=== PATIENT | female | born 1985 | race Caucasian/White ===

== ENCOUNTER 2016-07-08 11:16 | Outpatient (CLI) | payer OTHER ==
[~2016-07-08] VITALS: Ht 152.4 cm; Wt 61.3 kg
[~2016-07-08 11:16] MED LIST: AMO500 PO; CALC600T5 PO; FOLI0.8C PO; PRENAT PO
[2016-07-08 11:27] VITALS: BP 93/57; PULSE 94; RESP 18; Ht 152.4 cm; Wt 61.3 kg
--- NOTE | 2016-07-08 12:07 | RADRPT ---
PROCEDURE: OB ultrasound for biophysical profile CLINICAL INDICATION: tachycardia TECHNIQUE: Multiple sonographic images of the pelvis were obtained. Transabdominal views of the g ravid uterus are available for review. The images were reviewed on a PACS workstation. COMPARISON: None FINDINGS: breathing movement = 2/2 tone = 2/2 motion = 2/2 BRITTANY = 2/2 BRITTANY = 12.7 cm Single live intrauterine with cardiac activity of 148 bpm. position is cephal ic. The placenta is anterior. IMPRESSION: 1. Single live intrauterine gestation. 2. Biophysical profile = 8/8. 3. BRITTANY = 12.7 cm. RPTAT: HH .Laura Madden MD, MD Date Time Electronically viewed and signed by .Laura Madden MD, on 07/08/2016 12:06 .G/
--- NOTE | 2016-07-08 12:33 | TRIAGE ---
OB Triage Datetime Report Generated by CPN: 07/08/2016 12:33 Datetime: 07/08/2016 12:10 Labor Evaluation Frequency: 0 Monitor Mode: External Pattern: Normal: <= 5 Contractions in 10 Minutes Resting Tone [place]: Relaxed Heart Rate FHR Baseline Rate: 140 Monitor Mode: External US Variability: Moderate 6-25 bpm Accelerations: 15X15 Decelerations: None Category: Category I Pain Assessment Pain Presence: None/Denies Datetime: 07/08/2016 11:46 Assessment Type: Admission Assessment Maternal Assessment Level of Consciousness: Fully Conscious DTR's/Clonus: DTRs 2+; No Clonus Headache: Denies Blurred Vision: No Respiratory Effort: Unlabored; Regular Rhythm; Equal Expansion Breath Sounds, Left: Clear and Equal Breath Sounds, Right: Clear and Equal Nausea/Vomiting: Denies RUQ Epigastric Pain: Denies Lower Extremities Edema: None Degree: None Upper Extremities Edema: None Degree: None Facial Edema: None Fall Risk Assessment History of Falling: (0) No Secondary Diagnosis: (0) No Ambulatory Aid: (0) Bedrest/Nurse Assist IV Therapy: (0) No Gait: (0) Normal/Bedrest/Immobile Mental Status: (0) Oriented to Own Ability Fall Score: 0 Fall Risk Score Definition: No Risk: No action required Datetime: 07/08/2016 11:19 Pain Assessment Pain Presence: None/Denies Datetime: 07/08/2016 11:18 Stage of : OB Triage Datetime: 04/06/2016 11:38 Time of Arrival: 07/08/2016 11:03 EGA: 30.6 Arrived By: Ambulatory Arrived From: Office Chief Complaint: SENT FROM DR. SNOW FOR NST AND BPP WITH BRITTANY. BABY HEART TONES AT 180BPM AT OFFICE. Movement: Present Contractions: Denies/Absent Rupture of Membranes: Denies Vaginal Bleeding: None Vaginal Discharge: Denies Recent Sexual Intercouse: Denies Abdominal Trauma: Not Applicable Patient Complaints: None Time Provider Notified: 07/08/2016 12:18 Provider Notified: DR. HENDERSON Initial Plan: TOCO- U/S, BPP WITH BRITTANY Datetime: 04/06/2016 11:30 Fall Score: 0 Fall Risk Score Definition: No Risk: No action required
--- NOTE | 2016-07-08 13:11 | TRIAGE ---
OB Triage Datetime Report Generated by CPN: 07/08/2016 13:10 Datetime: 07/08/2016 12:26 Frequency: 0 Monitor Mode: External Pattern: Normal: <= 5 Contractions in 10 Minutes Resting Tone [place]: Relaxed FHR Baseline Rate: 150 Monitor Mode: External US Variability: Moderate 6-25 bpm Accelerations: 15X15 Decelerations: None Category: Category I Pain Presence: None/Denies
--- NOTE | 2016-07-08 13:14 | CONS ---
Date/Time of Note Date/Time of Note DATE: 07/08/16 TIME: 13:02 Consultation Date/Type/Reason Admit Date/Time July 08, 2069 OB triage consult Initial Consult Date This patient is 30 years old 3 para 2 living 2 with EDC of September 20, 2016 which makes her about 30 weeks and 6 days today On general examination she is a well-developed well-nourished lady, She was sent from the clinic for evaluation of tachycardia to rule out any abnormality of the fetus She is about 31 weeks . Her blood pressure is 93/57 pulse rate 94 respiration 18 temperature 98.9. On examination her ear nose throat appears to be normal neck is normal no neck vein distention no thyromegaly. No lymph node enlargement and evidence her body. Her chest is clear to auscultation heart normal sinus rhythm abdomen is soft fundus measures about 21 cm movement were normal no CVA tenderness . Urinalysis was performed which the report was normal no evidence of infection or blood By "life is "profile was performed the report was 8 out of 8 with amniotic fluid index of 12.7 cm Reason for Consultation With these positive findings normal heart rate and biophysical profile reassurance was given to the patient advised to continue her care in her handling tech's office dictation thank 24 HR Interval Summary Constitutional: no complaints (No complaint) Detailed Summary Eyes: No discharge, No no complaints, No other, No pain, No redness, No visual change ENT: No bleeding, No congestion, No discharge, No dysphagia, No no complaints, No other, No pain, No sore throat Respiratory: No cough, No no complaints, No other, No pain, No pleuritic pain, No shortness of breath, No sputum, No wheezing Cardiovascular: No chest pain, No edema, No lightheadedness, No no complaints, No orthopenea, No other, No palpitations, No paroxysmal nocturnal dyspnea Gastrointestinal: No blood, No constipation, No decreased appetite, No diarrhea , No flatus, No nausea, No no complaints, No other, No pain, No passing stool, No vomiting Musculoskeletal: No back pain, No bone/joint pain, No neck pain, No no complaints, No other, No restricted range of motion, No swelling Skin: No bruising, No erythema, No laceration, No no complaints, No other, No pruritis, No rash, No skin lesions Neurologic: No confusion, No dizziness, No focal-weakness, No headache, No no complaints, No other, No seizure, No syncope Endocrine: No dry skin, No no complaints, No other, No polydypsia, No polyuria , No temp intolerance Lymphatic: No adenopathy, No lymphadema, No no complaints, No other, No tender nodes Psychological: No anxiety, No confusion, No depression, No nl mood/affect, No no complaints, No other, No suicidal Immunologic: No immunodeficiency, No no complaints, No other, No pruritis, No rhinitis, No urticaria Exam/Review of Systems Vital Signs Vitals Vital Signs Date Time Temp Pulse Resp B/P Pulse Ox O2 Delivery O2 Flow Rate FiO2 07/08/16 11:27 98.9 94 18 93/57 Room Air DICK MELENDREZ MD Jul 08, 2016 13:12
--- NOTE | 2016-07-08 17:52 | TRIAGE ---
OB Triage Datetime Report Generated by CPN: 07/08/2016 17:52 Datetime: 07/08/2016 12:33 Time of Arrival: 07/08/2016 11:03 EGA: 30.6 Arrived By: Ambulatory Arrived From: Office Chief Complaint: SENT FROM OFFICE FOR NST AND BPP WITH BRITTANY. BABY HEART TONES AT 180BPM AT OFFICE. Movement: Present Contractions: Denies/Absent Rupture of Membranes: Denies Vaginal Bleeding: None Vaginal Discharge: Denies Recent Sexual Intercouse: Denies Abdominal Trauma: Not Applicable Patient Complaints: None Time Provider Notified: 07/08/2016 12:18 Provider Notified: DR. CARRION Initial Plan: TOCO- U/S, BPP WITH BRITTANY Datetime: 07/08/2016 11:46 Fall Score: 0 Fall Risk Score Definition: No Risk: No action required Datetime: 04/06/2016 11:38 EGA: 17.4
== END 2016-07-08 13:10 | disposition home or self-care (01) ==
LOC: OBT 11:16 → L-D 11:17 → OBT 13:10
PROVIDERS: ATTEND Obstetrics & Gynecology
DX: O76 Abnormality in fetal heart rate and rhythm complicating labor and delivery (principal); Z3A.30 30 weeks gestation of pregnancy
CPT/HCPCS: 76818; Z7500; G0463

== ENCOUNTER 2016-08-01 12:55 | Outpatient (CLI) | payer OTHER ==
[~2016-08-01] VITALS: Ht 152.4 cm; Wt 63.0 kg
[~2016-08-01 12:55] MED LIST changes: -AMO500 PO; -CALC600T5 PO; -FOLI0.8C PO
[2016-08-01 13:07] VITALS: BP 90/54; PULSE 83; RESP 19; Ht 152.4 cm; Wt 63.0 kg
[2016-08-01 13:18] LABS: URINE BLOOD (Dip) POC Negative (NEGATIVE)
[2016-08-01] MEDS ORDERED: LACTATED RINGER'S 1,000 ML IV ONE (13:30)
--- NOTE | 2016-08-01 13:52 | RADRPT ---
PROCEDURE: US OB. CLINICAL INDICATION: Decreased movement TECHNIQUE: Multiple sonographic images of the pelvis were obtained. The images were reviewed on a PACS workstation. COMPARISON: 07/08/2016 FINDINGS: There is a single live intrauterine . cardiac activity is identified at a rate of 18 5 beats per minute. presentation is cephalic. Placenta is anterior grade II with calcification. Biophysical profile score is as follows: Breathing 2 Movements 2 Tone 2 Fluid volume 2 Amniotic fluid index = 9.3 cm Total biophysical profile score = 8/8 IMPRESSION: Biophysical profile score = 8/8 tachycardia RPTAT: HH .Andrade Ibanez MD, MD Date Time Electronically viewed and signed by .Andrade Ibanez MD, on 08/01/2016 13:52 .W/
[2016-08-01 14:06] LABS: ADD UMIC YES; URINE BILIRUBIN (Dip) NEGATIVE (NEGATIVE); URINE BLOOD (Dip) NEGATIVE (NEGATIVE); URINE COLOR LT. YELLOW (YELLOW); URINE GLUCOSE (Dip) NEGATIVE (NEGATIVE); URINE KETONES (Dip) NEGATIVE (NEGATIVE); URINE LEUKOCYTE ESTERASE (Dip) 3+ (NEGATIVE); URINE NITRITE (Dip) NEGATIVE (NEGATIVE); URINE TOTAL PROTEIN (Dip) NEGATIVE (NEGATIVE); URINE UROBILINOGEN (Dip) 0.2 E.U./dL (0.1-1.0)
[2016-08-01 14:18] LABS: URINE RBCS NONE SEEN /HPF (0)
[2016-08-01 14:19] LABS: BACTERIA,URINE MODERATE
--- NOTE | 2016-08-01 15:03 | TRIAGE ---
OB Triage Datetime Report Generated by CPN: 08/01/2016 15:03 Datetime: 08/01/2016 15:00 Stage of : OB Triage Maternal Assessment Level of Consciousness: Fully Conscious DTR's/Clonus: DTRs 1+ Headache: Denies Breath Sounds, Left: Clear and Equal Breath Sounds, Right: Clear and Equal Nausea/Vomiting: Denies RUQ Epigastric Pain: Denies Monitor Mode: External Pattern: Normal: <= 5 Contractions in 10 Minutes Resting Tone [place]: Relaxed Heart Rate FHR Baseline Rate: 135 Monitor Mode: External US Variability: Moderate 6-25 bpm Accelerations: 15X15 Decelerations: None Category: Category I Pain Assessment Pain Scale: 0 Pain Presence: None/Denies Pain Type: N/A Pain Goal: 3 Vaginal Exam Membrane Status: Intact Datetime: 08/01/2016 14:32 Maternal Assessment Level of Consciousness: Fully Conscious DTR's/Clonus: DTRs 1+ Headache: Denies Blurred Vision: No Respiratory Effort: Unlabored Breath Sounds, Left: Clear and Equal Breath Sounds, Right: Clear and Equal Nausea/Vomiting: Denies RUQ Epigastric Pain: Denies Facial Edema: None Labor Evaluation Frequency: OCC Monitor Mode: External Duration (sec)2399: 30-40 Quality: Mild Pattern: Normal: <= 5 Contractions in 10 Minutes Resting Tone [place]: Relaxed Heart Rate FHR Baseline Rate: 135 Monitor Mode: External US Variability: Moderate 6-25 bpm Accelerations: 15X15 Decelerations: None Category: Category I Pain Assessment Pain Scale: 0 Pain Presence: None/Denies Pain Type: N/A Pain Goal: 3 Vaginal Exam Membrane Status: Intact Datetime: 08/01/2016 13:21 Maternal Assessment Level of Consciousness: Fully Conscious DTR's/Clonus: DTRs 1+ Headache: Denies Blurred Vision: No Respiratory Effort: Unlabored Breath Sounds, Left: Clear and Equal Breath Sounds, Right: Clear and Equal Nausea/Vomiting: Denies RUQ Epigastric Pain: Denies Facial Edema: None Labor Evaluation Frequency: NONE Monitor Mode: External Resting Tone [place]: Relaxed Heart Rate FHR Baseline Rate: 150 Monitor Mode: External US Variability: Moderate 6-25 bpm Accelerations: 15X15 Decelerations: None Category: Category I Pain Assessment Pain Scale: 4 Pain Presence: Constant Pain Type: Dull Pain Location: Abdomen Pain Goal: 3 Vaginal Exam Membrane Status: Intact Datetime: 08/01/2016 13:06 Assessment Type: Triage Maternal Assessment Level of Consciousness: Fully Conscious DTR's/Clonus: DTRs 2+; No Clonus Headache: Denies Blurred Vision: No Respiratory Effort: Unlabored; Regular Rhythm; Equal Expansion Breath Sounds, Left: Clear and Equal Breath Sounds, Right: Clear and Equal Nausea/Vomiting: Denies RUQ Epigastric Pain: Denies Lower Extremities Edema: None Degree: None Upper Extremities Edema: None Degree: None Facial Edema: None Fall Risk Assessment History of Falling: (0) No Secondary Diagnosis: (0) No Ambulatory Aid: (0) Bedrest/Nurse Assist IV Therapy: (0) No Gait: (0) Normal/Bedrest/Immobile Mental Status: (0) Oriented to Own Ability Fall Score: 0 Fall Risk Score Definition: No Risk: No action required Datetime: 08/01/2016 12:49 Time of Arrival: 08/01/2016 12:49 EGA: 34.2 Arrived By: Ambulatory Arrived From: Home Chief Complaint: PT CAME IN C/O LOWER CONSTANT ABDOMINAL PAIN SINCE 0200 AND DFM Movement: Present Contractions: Denies/Absent Rupture of Membranes: Denies Vaginal Discharge: Denies Recent Sexual Intercouse: Denies Additional Patient Complaints: NONE Initial Plan: NST AND BPP Datetime: 07/08/2016 12:33 EGA: 30.6 Chief Complaint: SENT FROM DR. OFFICE FOR NST AND BPP WITH BRITTANY. BABY HEART TONES AT 180BPM AT DR. OFFICE PER DR. CARRION. Datetime: 07/08/2016 11:46 Fall Score: 0 Fall Risk Score Definition: No Risk: No action required Datetime: 04/06/2016 11:38 EGA: 17.4 Datetime: 04/06/2016 11:30 Fall Score: 0 Fall Risk Score Definition: No Risk: No action required
--- NOTE | 2016-08-01 15:06 | HP ---
Date/Time of Note Date/Time of Note DATE: 08/01/16 TIME: 14:57 OB - History Hx of Present Free Text/Dictation OB Triage H&P Pt is a 31yo at 34+2 presenting with c/o LAP and decreased FM since midnight. Pt now reports normal FM in triage. Denies LOF or VB, occasionally feels UCs. Does c/o dysuria, frequency and urgency. PROCEDURE: US OB. CLINICAL INDICATION: Decreased movement TECHNIQUE: Multiple sonographic images of the pelvis were obtained. The images were reviewed on a PACS workstation. COMPARISON: 07/08/2016 FINDINGS: There is a single live intrauterine . cardiac activity is identified at a rate of 185 beats per minute. presentation is cephalic. Placenta is anterior grade II with calcification. Biophysical profile score is as follows: Breathing 2 Movements 2 Tone 2 Fluid volume 2 Amniotic fluid index = 9.3 cm Total biophysical profile score = 8/8 IMPRESSION: Biophysical profile score = 8/8 tachycardia Past Family/Social History * Past Medical, Surgical, Family and Obstetric Histories reviewed from chart. OB Admission Exam Vital Signs Vital Signs Vital Signs Date Time Temp Pulse Resp B/P Pulse Ox O2 Delivery O2 Flow Rate FiO2 08/01/16 13:07 98.2 83 19 90/54 99 Room Air Physical Exam Abdomen: WNL Heart Rate: 130's Accelerations: Accelerations Present Decelerations: No Decelerations Varibility: Moderate Contractions on Admission: >10 Minutes Apart (2 UCs/90 min) OB Assessment/Plan Other Assessment: Reassuring FWB UTI Other plan: 1)FWB reassuring w/normal BPP. Initially tachycardia to 170s was noted with accels to 180s on FHT, however with IV hydration per Dr. Buckley, tachycardia resolved. 2)UTI- Will presumptively treat given Udip and sxs with 7d of Macrobid. Urine sent for culture. Dr. Buckley aware of U/S findings as discussed with her by tool room attendant. PTL, PPROM and FKC precautions reviewed with pt. Pt to f/up with Dr. Buckley as outpatient on 08/13/16, sooner in OB triage prn. Questions answered to patient's satisfaction. Pt appropriate for d/c home. KELLY MACIAS MD Aug 01, 2016 15:06
== END 2016-08-01 15:00 | disposition home or self-care (01) ==
LOC: OBT 12:55 → L-D 12:56 → OBT 15:00
PROVIDERS: ATTEND Obstetrics & Gynecology
DX: O36.8130 Decreased fetal movements, third trimester, not applicable or unspecified (principal); O62.9 Abnormality of forces of labor, unspecified; O26.893 Other specified pregnancy related conditions, third trimester; R10.12 Left upper quadrant pain; Z3A.34 34 weeks gestation of pregnancy
CPT/HCPCS: 36415; 76818; 81001; 81003; 87086; J7120; Z7500; G0463

== ENCOUNTER 2016-08-22 19:41 | Outpatient (CLI) | payer OTHER ==
[~2016-08-22] VITALS: Ht 154.9 cm; Wt 63.6 kg
[2016-08-22 19:59] VITALS: Ht 154.9 cm; Wt 63.6 kg
[2016-08-22 20:00] VITALS: BP 100/63; PULSE 90; RESP 18
--- NOTE | 2016-08-22 23:24 | RADRPT ---
PROCEDURE: ULTRASOUND BIOPHYSICAL PROFILE CLINICAL INDICATION: 31-year-old female with contractions for viability. TECHNIQUE: Multiple sonographic images were obtained in order to perform a biophysical profile The images were reviewed on a PACS workstation. COMPARISON: Ultrasound biophysical profile August 01, 2016. FINDINGS: There is a single viable intrauterine gestation. There is a vertex presentation. Cardiac activity i s present at 137 beats per minute. The placenta is anterior. The results of the biophysical profile are as follows: breathing movement = 2/2 Gross body movement = 2/2 tone = 2/2 Qualitative amniotic fluid volume = 2/2 Amniotic fluid index equals 10.0 cm. This yields a biophysical profile score of 8/8. IMPRESSION: Biophysical profile score is 8/8. .Kai Gandhi MD, MD Date Time Electronically viewed and signed by .Kai Gandhi MD, MD on 08/22/2016 23:24 .M/
--- NOTE | 2016-08-23 00:18 | QN ---
Documentation Comment Laborist Dr Buckley's pt 31 y.o. with an IUP at 37w3d c/o contractions. No VB. No leaking. PMHx: none. PSHx: none. POBHx: x 2. The last baby was 7 years ago, that labor was about 8 hours, and she has no recollection if she delivered early, late or on time. NKDA. BP 100/63 T=98.3 BPP 8/8 with an BRITTANY of 10cm. VTX. CX 30%/FT/-3. NST: baseline was 140-150 bpm with accels to 180 bpm. No decels. UC's q 6-9 minutes. A: IUP at 37w3d. False labor. Plan: D/C home. kick counts reviewed with the pt. ASHLEY QUICK MD Aug 23, 2016 00:18
--- NOTE | 2016-08-23 00:57 | TRIAGE ---
OB Triage Datetime Report Generated by CPN: 08/23/2016 00:57 Datetime: 08/23/2016 00:07 Stage of : OB Triage Datetime: 08/23/2016 00:05 Stage of : OB Triage Datetime: 08/22/2016 23:00 Stage of : OB Triage Labor Evaluation Frequency: IRREGULAR Monitor Mode: External Duration (sec)2399: 60-90 Quality: Mild Pattern: Normal: <= 5 Contractions in 10 Minutes Resting Tone [place]: Relaxed Heart Rate FHR Baseline Rate: 125 Monitor Mode: External US Variability: Moderate 6-25 bpm Accelerations: 15X15 Decelerations: None Category: Category I Datetime: 08/22/2016 22:31 Vaginal Exam Dilatation (cms): 1.0 Effacement (%): 30 Station: -3 Datetime: 08/22/2016 20:27 Labor Evaluation Frequency: IRREGULAR Monitor Mode: External Duration (sec)2399: 60-90 Quality: Mild Pattern: Normal: <= 5 Contractions in 10 Minutes Resting Tone [place]: Relaxed Heart Rate FHR Baseline Rate: 145 Monitor Mode: External US Variability: Moderate 6-25 bpm Accelerations: 15X15 Decelerations: None Category: Category I Datetime: 08/22/2016 20:15 Vaginal Exam Dilatation (cms): 1.0 Effacement (%): 30 Station: -3 Membrane Status: Intact Datetime: 08/22/2016 19:55 Stage of : OB Triage Maternal Assessment Level of Consciousness: Fully Conscious Headache: Denies Blurred Vision: No Respiratory Effort: Unlabored Nausea/Vomiting: Denies RUQ Epigastric Pain: Denies Lower Extremities Edema: None Degree: None Upper Extremities Edema: None Degree: None Facial Edema: None Temperature Route: Oral Datetime: 08/22/2016 19:51 Contraction Comments: TOCO APPLIED Comments: US APPLIED Datetime: 08/22/2016 19:45 Time of Arrival: 08/22/2016 19:45 EGA: 37.2 Arrived By: Ambulatory Arrived From: Home Chief Complaint: CONTRACTIONS Movement: Present Contractions: Irregular Time Contractions Began: 08/22/2016 17:00 Contractions: 6-9 Rupture of Membranes: Denies Vaginal Bleeding: None Vaginal Discharge: Denies Recent Sexual Intercouse: Denies Abdominal Trauma: Not Applicable Patient Complaints: Contractions Time Provider Notified: 08/22/2016 20:19 Provider Notified: MURALI Initial Plan: VE; NST Datetime: 08/01/2016 15:00 Vaginal Bleeding: None Datetime: 08/01/2016 13:06 Fall Risk Assessment Fall Score: 0 Fall Risk Score Definition: No Risk: No action required Datetime: 08/01/2016 12:49 EGA: 34.2 Time Provider Notified: 08/01/2016 13:12 Provider Notified: MURALI Datetime: 07/08/2016 12:33 EGA: 30.6 Datetime: 07/08/2016 11:46 Fall Risk Assessment Fall Score: 0 Fall Risk Score Definition: No Risk: No action required Datetime: 04/06/2016 11:38 EGA: 17.4 Datetime: 04/06/2016 11:30 Fall Risk Assessment Fall Score: 0 Fall Risk Score Definition: No Risk: No action required
== END 2016-08-23 00:15 | disposition home or self-care (01) ==
LOC: OBT 19:41 → L-D 19:42 → OBT 08-23 00:15
PROVIDERS: ATTEND Obstetrics & Gynecology
DX: O47.03 False labor before 37 completed weeks of gestation, third trimester (principal); Z3A.31 31 weeks gestation of pregnancy
CPT/HCPCS: 76818

== ENCOUNTER 2016-09-09 20:43 | Outpatient (CLI) | payer OTHER ==
[~2016-09-09] VITALS: Ht 152.4 cm; Wt 59.1 kg
[2016-09-09 20:58] VITALS: Ht 152.4 cm; Wt 59.1 kg
[2016-09-09 20:59] VITALS: BP 103/61; PULSE 97; RESP 18
[2016-09-09] MEDS ORDERED: ACETAMINOPHEN 500 MG TAB PO STA (21:20)
[2016-09-09] MEDS ORDERED: LACTATED RINGER'S 1,000 ML IV ONE (21:30)
[2016-09-09 22:07] LABS: ADD SCAN DIFF NO
[2016-09-09 22:10] LABS: BASOPHILS % 0.3 % (0.0-2.0); EOSINOPHILS # 0.1 10^3/ul (0.0-0.5); EOSINOPHILS % 1.4 % (0.0-7.0); HEMOGLOBIN 12.4 g/dl (12.0-16.0); LYMPHOCYTES # 1.6 10^3/ul (0.8-2.9); LYMPHOCYTES % 20.9 % (15.0-51.0); MEAN CORPUSCULAR HEMOGLOBIN 31.5 pg (29.0-33.0); MEAN CORPUSCULAR HGB CONC 34.4 g/dl (32.0-37.0); MEAN CORPUSCULAR VOLUME 91.4 fl (82.0-101.0); MEAN PLATELET VOLUME 10.3 fl (7.4-10.4); MONOCYTE # 0.8 10^3/ul (0.3-0.9); NEUTROPHIL # 5.2 10^3/ul (1.6-7.5); NEUTROPHILS % 66.9 % (39.0-77.0); PLATELET COUNT 244 10^3/UL (140-415); RED BLOOD COUNT 3.94 10^6/ul (4.20-5.40); RED CELL DISTRIBUTION WIDTH 13.1 % (11.5-14.5); WHITE BLOOD COUNT 7.8 10^3/ul (4.8-10.8)
[2016-09-09 22:30] LABS: ALBUMIN 3.4 g/dl (3.3-4.9)
[2016-09-09 22:31] LABS: POTASSIUM 3.3 mmol/L (3.5-5.1)
[2016-09-09 22:33] LABS: BILIRUBIN,INDIRECT 0.3 mg/dl (0-1.1); BILIRUBIN,TOTAL 0.3 mg/dl (0.2-1.3); CREATININE 0.47 mg/dl (0.44-1.00); TOTAL PROTEIN 6.8 g/dl (6.1-8.1)
[2016-09-09 22:34] LABS: CALCIUM 8.9 mg/dl (8.4-10.2)
--- NOTE | 2016-09-09 23:36 | PN ---
Date/Time of Note Date/Time of Note DATE: 09/09/16 TIME: 23:34 OB Subjective Subjective Subjective 31 yo P2 @ [id number], presents w headache, n/v good FM, some ctx, no LOF, no VB OB Objective Objective Objective VS: WNL Abdomen- gravid, n/t SVE- 1-2/70/-3 FHT- Cat I [place]- irreg ctx Abdomen: WNL Cervical Dilatation: 1cm Effacement: 75% Station: -3 Membranes: Intact Accelerations: Accelerations Present Decelerations: No Decelerations Contractions on Admission: >10 Minutes Apart OB Assessment/Plan Other Assessment: 31 yo P2 @ 39+ wks, w headache and n/v, now resolved after hydration and tylenol - reassuring status Other plan: d/c home f/u w OB provider tomorrow AREANN DOMINGUEZ MD September 09, 2016 23:36
--- NOTE | 2016-09-09 23:49 | TRIAGE ---
OB Triage Datetime Report Generated by CPN: 09/09/2016 23:49 Datetime: 09/09/2016 23:35 Stage of : OB Triage Datetime: 09/09/2016 21:08 Vaginal Exam Dilatation (cms): 1.5 Effacement (%): 70 Station: -3 Exam By: Ole Vaginal Bleeding: None Cervix, Consistency: Soft Cervix, Position: Anterior Presentation 'A': Cephalic Datetime: 09/09/2016 21:02 Stage of : OB Triage Maternal Assessment Level of Consciousness: Fully Conscious DTR's/Clonus: DTRs 2+; No Clonus Headache: Denies Blurred Vision: No Respiratory Effort: Unlabored; Regular Rhythm; Equal Expansion Breath Sounds, Left: Clear and Equal Breath Sounds, Right: Clear and Equal Nausea/Vomiting: Denies RUQ Epigastric Pain: Denies Facial Edema: None Temperature Route: Axillary Fall Risk Assessment History of Falling: (0) No Secondary Diagnosis: (0) No Ambulatory Aid: (0) Bedrest/Nurse Assist IV Therapy: (0) No Gait: (0) Normal/Bedrest/Immobile Mental Status: (0) Oriented to Own Ability Fall Score: 0 Fall Risk Score Definition: No Risk: No action required Datetime: 09/09/2016 21:01 Time of Arrival: 09/09/2016 20:40 EGA: 39.6 Arrived By: Ambulance Arrived From: Home Chief Complaint: vomiting x 5 today, headache and abdominal pain Movement: Decreased Contractions: Denies/Absent Rupture of Membranes: Denies Vaginal Bleeding: None Vaginal Discharge: Denies Recent Sexual Intercouse: Denies Abdominal Trauma: Not Applicable Patient Complaints: Other Time Provider Notified: 09/09/2016 21:00 Provider Notified: MURALI Initial Plan: EFM, CALL OB Datetime: 09/09/2016 20:54 Temperature Route: Oral Datetime: 08/23/2016 00:00 Stage of : OB Triage Labor Evaluation Frequency: IRREGULAR Monitor Mode: External Duration (sec)2399: 60-90 Quality: Mild Pattern: Normal: <= 5 Contractions in 10 Minutes Resting Tone [place]: Relaxed Heart Rate FHR Baseline Rate: 125 Monitor Mode: External US Variability: Moderate 6-25 bpm Accelerations: 15X15 Decelerations: None Datetime: 08/22/2016 19:45 EGA: 37.2 Datetime: 08/01/2016 13:06 Fall Score: 0 Fall Risk Score Definition: No Risk: No action required Datetime: 08/01/2016 12:49 EGA: 34.2 Datetime: 07/08/2016 12:33 EGA: 30.6 Datetime: 07/08/2016 11:46 Fall Score: 0 Fall Risk Score Definition: No Risk: No action required Datetime: 04/06/2016 11:38 EGA: 17.4 Datetime: 04/06/2016 11:30 Fall Score: 0 Fall Risk Score Definition: No Risk: No action required
== END 2016-09-09 23:35 | disposition home or self-care (01) ==
LOC: OBT 20:43 → L-D 20:43 → OBT 23:35
PROVIDERS: ATTEND Obstetrics & Gynecology
DX: O26.893 Other specified pregnancy related conditions, third trimester (principal); R51 Headache; O21.2 Late vomiting of pregnancy; Z3A.39 39 weeks gestation of pregnancy
CPT/HCPCS: 80053; 85025; J7120; Z7610

== ENCOUNTER 2016-09-15 09:00 | Inpatient (IN) | payer OTHER ==
[~2016-09-15] VITALS: Ht 154.9 cm; Wt 62.7 kg
[2016-09-15 09:55] VITALS: Ht 154.9 cm; Wt 62.7 kg
[2016-09-15 09:56] VITALS: BP 99/61; PULSE 100; RESP 18
[2016-09-15] MEDS ORDERED: CARBOPROST 250 MCG INJ IM PRN ×2 (10:00→23:30)
[2016-09-15] MEDS ORDERED: METHYLERGONOVINE 0.2 MG INJ IM PRN ×2 (10:00→23:30)
[2016-09-15] MEDS ORDERED: OXYTOCIN 30 UNITS/LR 500 ML IV PRN ×2 (10:00→23:30)
[2016-09-15] MEDS ORDERED: LIDOCAINE 1% (MPF) 30 ML INJ INJ PRN (10:00)
[2016-09-15] MEDS ORDERED: OXYTOCIN 30 UNITS/LR 500 ML IV SCH ×3 (10:00→12:00)
[2016-09-15] MEDS ORDERED: BUTORPHANOL 2 MG INJ IV PRN (10:00)
[2016-09-15] MEDS ORDERED: LACTATED RINGER'S 1,000 ML IV PRN (10:00)
[2016-09-15] MEDS ORDERED: IBUPROFEN 600 MG TAB PO PRN (10:00)
[2016-09-15] MEDS ORDERED: MISOPROSTOL 200 MCG TAB PR PRN ×2 (10:00→23:30)
[2016-09-15] MEDS: LACTATED RINGER'S 1,000 ML IV SCH ×2 (10:02→18:22)
[2016-09-15 10:16] LABS: ADD SCAN DIFF NO
[2016-09-15 10:21] LABS: EOSINOPHILS # 0.1 10^3/ul (0.0-0.5); EOSINOPHILS % 1.2 % (0.0-7.0); HEMATOCRIT 38.6 % (37.0-47.0); MEAN CORPUSCULAR HEMOGLOBIN 30.9 pg (29.0-33.0); MEAN CORPUSCULAR HGB CONC 33.7 g/dl (32.0-37.0); MEAN CORPUSCULAR VOLUME 91.7 fl (82.0-101.0); MEAN PLATELET VOLUME 10.5 fl (7.4-10.4); MONOCYTE # 0.4 10^3/ul (0.3-0.9); MONOCYTES % 6.2 % (0.0-11.0); NEUTROPHIL # 4.2 10^3/ul (1.6-7.5); NEUTROPHILS % 62.2 % (39.0-77.0); PLATELET COUNT 239 10^3/UL (140-415); RED BLOOD COUNT 4.21 10^6/ul (4.20-5.40); RED CELL DISTRIBUTION WIDTH 13.2 % (11.5-14.5); WHITE BLOOD COUNT 6.8 10^3/ul (4.8-10.8)
[2016-09-15 10:40] LABS: INR 0.91; PROTIME 12.3 Sec (12.2-14.2)
[2016-09-15] MEDS ORDERED: FENTAnyl 2MCG/ML-ROPIV 0.2% 100 ML ONE (18:56)
--- NOTE | 2016-09-15 22:29 | LDN ---
Date/Time of Note Date/Time of Note DATE: 09/15/16 TIME: 22:25 Delivery Summary rapid progress called at 7cm 2110 by laborist [id number] Weeks of Gestation 39w1d Placenta Delivered: Spontaneously Meconium: none Episiotomy: No Perineal laceration: 1 Anesthesia type: Local Estimated blood loss: 100 Sponge & Needle done & correct: Yes All needle counts correct: Yes Any foreign bodies felt in the: No Problems: Delivery Information Sex Sex: female Apgars 1 Minute: 9 5 Minute: 9 Suctioning Nose & mouth suctioned at lara: Yes Umbilical Cord Umbilical cord with: 3 Vessels Cord presentations: no nuchal cord Cord Blood was obtained: Yes Mother & Baby Disposition Disposition Mom & Baby to Maternity; Good: Yes Baby to NICU: No LUIS FERNANDO CARRION MD September 15, 2016 22:29
--- NOTE | 2016-09-15 22:34 | HP ---
Date/Time of Note Date/Time of Note DATE: 09/15/16 TIME: 22:29 OB - History Hx of Present Free Text/Dictation 31 y.o A0 AT 39W1D WAS ADMITTED FOR INDUCTION OF LABOR AT 17W SUSPICIOUS OF PPROM WAS ON AB FOR 2WEEKS PRIOR TO TRANSFER TO MY SERVICE VE 1CM 50% PITOCIN INDUCTION Chief Complaint: FOR INDUCTION Estimated Due Date: September 20, 2016 : 3 Para: 2 Spontaneous : 0 Therapeutic : 0 Care: Good Care Ultrasounds: Normal mid trimester US Obstetrical Complications: None Medical Complications: None Past Family/Social History * Past Medical, Surgical, Family and Obstetric Histories reviewed from chart. Blood Type: O+ Rubella: immune RPR/VDRL: Negative GBS Status: Negative HBsAG: Negative OB Admission Exam Vital Signs Vital Signs Vital Signs Date Time Temp Pulse Resp B/P Pulse Ox O2 Delivery O2 Flow Rate FiO2 09/15/16 09:56 98.0 100 18 99/61 Room Air Physical Exam HEENT: WNL Heart: Rhythm Normal Lungs: Clear, Equal Abdomen: WNL Extremities: Normal Reflexes: Normal Cervical Dilatation: 1cm Effacement: 50% Station: -3 Membranes: Intact Amniotic Fluid: Unevaluable Heart Rate: 140's Accelerations: Accelerations Present Decelerations: No Decelerations Varibility: Moderate Contractions on Admission: >10 Minutes Apart Intensity: Mild Last 72 hours Lab Results CBC & BMP 09/15/16 10:00 OB Assessment/Plan Reason for admission: induction of labor Plan: Induction Induction Method: per Pitocin Protocol LUIS FERNANDO CARRION MD September 15, 2016 22:34
--- NOTE | 2016-09-15 23:08 | QN ---
Documentation Comment Patient had been managed during labor by Dr. constantino I was called to L&d room to be stand by for a patient that had been managed by Dr. constantino. Patient is multiparous and has urge to push. She is complete complete +2 station. heart tones category 1. Patient feels significant urge to push. With maternal pushing a viable baby was delivered in LOLA position, after delivery of the head anterior and posterior shoulder and then the rest of the body delivered without any complication. Placenta was then delivered spontaneously. Fundus was firm. Cord blood was obtained. Baby after clamping and cutting of the cord and after suctioning of the mouth and nose was handed to the waiting nurses. Dr. Constantino is on her way. Perineum noted to have first-degree laceration that repaired using 3-0 chromic after infiltration with lidocaine. Patient tolerated well Sponge lap and needle counts were correct 2 MAGALY TROTTER MD September 15, 2016 23:08
[2016-09-15] MEDS ORDERED: ZOLPIDEM 5 MG TAB PO PRN (23:30)
[2016-09-15] MEDS ORDERED: OXYCODONE/ASPIRIN (4.88/325) TAB PO PRN (23:30)
[2016-09-15] MEDS ORDERED: BENZOCAINE 20% 56 ML SPRAY TOP PRN (23:30)
[2016-09-15] MEDS ORDERED: WITCH HAZEL/GLYCERIN PAD PR PRN (23:30)
[2016-09-15] MEDS ORDERED: LANOLIN 7 GM TUBE TOP PRN (23:30)
[2016-09-16 00:15] VITALS: BP 103/70; PULSE 68; RESP 18
[2016-09-16] MEDS: IBUPROFEN 600 MG TAB PO SCH ×4 (00:39→18:24)
[2016-09-16] MEDS: OXYCODONE/ASPIRIN (4.88/325) TAB PO PRN ×2 (01:25→11:02)
[2016-09-16 04:00] VITALS: BP 100/64; PULSE 72; RESP 18
[2016-09-16 08:00] VITALS: BP 98/50; PULSE 71; RESP 18
[2016-09-16 08:19] LABS: ADD SCAN DIFF NO
[2016-09-16 08:42] LABS: BASOPHILS % 0.1 % (0.0-2.0); EOSINOPHILS % 0.2 % (0.0-7.0); HEMATOCRIT 35.9 % (37.0-47.0); LYMPHOCYTES # 2.3 10^3/ul (0.8-2.9); LYMPHOCYTES % 18.8 % (15.0-51.0); MEAN CORPUSCULAR HEMOGLOBIN 30.7 pg (29.0-33.0); MEAN CORPUSCULAR HGB CONC 33.4 g/dl (32.0-37.0); MEAN CORPUSCULAR VOLUME 91.8 fl (82.0-101.0); MEAN PLATELET VOLUME 10.7 fl (7.4-10.4); MONOCYTE # 0.9 10^3/ul (0.3-0.9); MONOCYTES % 7.7 % (0.0-11.0); NEUTROPHIL # 8.8 10^3/ul (1.6-7.5); NEUTROPHILS % 72.6 % (39.0-77.0); PLATELET COUNT 218 10^3/UL (140-415); RED BLOOD COUNT 3.91 10^6/ul (4.20-5.40); RED CELL DISTRIBUTION WIDTH 13.1 % (11.5-14.5); WHITE BLOOD COUNT 12.2 10^3/ul (4.8-10.8)
[2016-09-16] MEDS: SENNA/DOCUSATE NA (8.6MG/50MG) TAB PO SCH ×2 (09:28→21:11)
[2016-09-16 16:00] VITALS: BP 112/68; PULSE 75; RESP 18
[2016-09-16 20:00] VITALS: BP 94/59; PULSE 70; RESP 18
[2016-09-17 04:07] VITALS: BP 101/60; PULSE 70; RESP 18
[2016-09-17] MEDS: IBUPROFEN 600 MG TAB PO SCH ×3 (05:02→10:13)
--- NOTE | 2016-09-17 07:57 | PD.PPDC ---
AREA SAFETY MANAGER Discharge Instruction Diagnosis Final Diagnosis: s/p normal vagial delivery Condition Patient Condition: Stable Diet Diet: Resume Regular Diet Activity/Restrictions Activity: August Shower Restrictions: No Lifting No Sexual Activity Nothing in the Vagina No [place] No Tampons, douche Follow-up Follow-up with Physician: 6, Week/Weeks Return to clinic for FUR BUYER Instructions: Fever greater than 101 Chills Worsening abdominal pain Excessive Vaginal Bleeding More than 2 pads per hour Unable to tolerate diet OB Instructions: Breast Tenderness Depression Blurried Vision Headache LUIS FERNANDO CARRION MD September 17, 2016 07:57
[2016-09-17 08:00] VITALS: BP 95/60; PULSE 62; RESP 16
--- NOTE | 2016-09-17 08:01 | DS ---
Date/Time of Note Date/Time of Note DATE: 09/17/16 TIME: 07:59 Obstetrical Discharge Record Final Diagnosis Final Diagnosis: Term delivered Vaginal Delivery Obstetrical Delivery: Spontaneous, Laceration, Repaired Complications Induction: Yes Rupture of Membranes: No Condition on Discharge Physical Assessment Last Vitals: vss aferile fundus firm lochia min ext kacey gor tendernss Voiding: Yes Bowel Movement: Yes Breast: Soft, non-tender Fundus: Firm Calf Tenderness: No Patient Condition: Stable LUIS FERNANDO CARRION MD September 17, 2016 08:01
[2016-09-17] MEDS: SENNA/DOCUSATE NA (8.6MG/50MG) TAB PO SCH (08:55)
[2016-09-17] MEDS ORDERED: DIPHTH/TET/ACEL PERTUSS (ADULT) 0.5 ML VIAL IM* ONE (09:00)
== END 2016-09-17 11:40 | disposition home or self-care (01) | DRG 775 ==
LOC: L-D 09:42 → PP1 09-16 00:25
PROVIDERS: ADMIT Obstetrics & Gynecology; ATTEND Obstetrics & Gynecology
PROC: 0HQ9XZZ Repair Perineum Skin, External Approach (ICD-10-PCS; 2016-09-15)
PROC: 10E0XZZ Delivery of Products of Conception, External Approach (ICD-10-PCS; principal; 2016-09-15 09:00)
PROC: 3E00X4Z Introduction of Serum, Toxoid and Vaccine into Skin and Mucous Membranes, External Approach (ICD-10-PCS; 2016-09-17)
DX: O70.0 First degree perineal laceration during delivery (principal); Z23 Encounter for immunization; Z3A.39 39 weeks gestation of pregnancy; Z37.0 Single live birth
CPT/HCPCS: 85025; 85610; 85730; 86592; 86900; 86901; 90715; J2590; J3010; J7120

== ENCOUNTER 2017-11-08 16:57 | Emergency (ER) | END 2017-11-08 20:37 | disposition home or self-care (01) ==

== ENCOUNTER 2017-11-16 13:28 | Emergency (ER) | END 2017-11-16 16:05 | disposition home or self-care (01) ==

== ENCOUNTER 2017-12-28 16:22 | Emergency (ER) | END 2017-12-28 20:59 | disposition home or self-care (01) ==

== ENCOUNTER 2018-04-22 21:35 | Inpatient (IN) | END 2018-04-25 14:40 | disposition home or self-care (01) | DRG 833 ==

== ENCOUNTER 2018-06-16 18:19 | Inpatient (IN) | payer MEDICAID ==
[~2018-06-16] VITALS: Ht 154.9 cm; Wt 64.7 kg
[~2018-06-16 18:19] MED LIST changes: +PREN-93 PO; -PRENAT PO
[2018-06-16 18:31] VITALS: Ht 154.9 cm; Wt 64.7 kg
[2018-06-16 18:32] VITALS: BP 104/63; PULSE 98; RESP 18
[2018-06-16] MEDS ORDERED: LACTATED RINGER'S 1,000 ML IV PRN (21:45)
[2018-06-16] MEDS ORDERED: OXYTOCIN 30 UNITS/LR 500 ML IV SCH (22:00)
[2018-06-16] MEDS ORDERED: MISOPROSTOL 200 MCG TAB PR PRN (22:00)
[2018-06-16] MEDS ORDERED: BUTORPHANOL 2 MG INJ IV PRN (22:00)
[2018-06-16] MEDS ORDERED: CARBOPROST 250 MCG INJ IM PRN (22:00)
[2018-06-16] MEDS ORDERED: OXYTOCIN 30 UNITS/LR 500 ML IV PRN (22:00)
[2018-06-16] MEDS ORDERED: LIDOCAINE 1% (MPF) 30 ML INJ INJ PRN (22:00)
[2018-06-16] MEDS ORDERED: METHYLERGONOVINE 0.2 MG INJ IM PRN (22:00)
[2018-06-16] MEDS ORDERED: IBUPROFEN 600 MG TAB PO PRN (22:00)
[2018-06-16] MEDS: LACTATED RINGER'S 1,000 ML IV SCH ×2 (22:05→23:16)
--- NOTE | 2018-06-16 22:51 | PREAC ---
Date/Time of Note Date/Time of Note DATE: 06/16/18 TIME: 22:50 Anesthesia Eval and Record Evaluation Time Pre-Procedure Interview DATE: 06/16/18 TIME: 22:50 Age 32 Sex female NPO: 8 hrs Preoperative diagnosis labor pain Planned procedure labor epidural Past Medical History Past Medical History: None Surgery & Anesthesia Issues No known issue Meds Anticoagulation: No Beta Melvina within 24 hr: No Reason Beta Melvina not given: Pt. not on B-Melvina Reported Medications Vit No.124/Iron/FA ( Vitamin Tablet) 1 Each Tablet, 1 EACH PO DAILY, TAB 05/31/18 Current Medications Lactated Ringer's 1,000 ml @ 125 mls/hr Q8H IV Last administered on 06/16/18at 22:05; Admin Dose 125 MLS/HR; Start 06/16/18 at 21:45 Butorphanol Tartrate (Stadol) 2 mg Q2H PRN IV .PAIN; Start 06/16/18 at 22:00 Lidocaine (Xylocaine 1% (Mpf)) 30 ml ONCE PRN INJ .EPISIOTOMY; Start 06/16/18 at 22:00 Oxytocin/Lactated Ringer's 500 ml @ 500 mls/hr ONCE POST IV ; Start 06/16/18 at 22:00 Oxytocin/Lactated Ringer's 500 ml @ 125 mls/hr POST IV ; Start 06/16/18 at 22:00 Ibuprofen (Motrin) 600 mg ONCE PRN PO .PAIN 1-5; Start 06/16/18 at 22:00 Lactated Ringer's 1,000 ml @ 2,000 mls/hr Q30M PRN IV .ANESTHESIA; Start 06/16/18 at 21:45 Oxytocin/Lactated Ringer's 500 ml @ 0 mls/hr ONCE PRN IV .VAGINAL BLEEDING; Start 06/16/18 at 22:00 Methylergonovine Maleate (Methergine) 0.2 mg ONCE PRN IM .VAGINAL BLEEDING; Start 06/16/18 at 22:00 Carboprost Tromethamine (Hemabate) 250 mcg ONCE PRN IM .VAGINAL BLEEDING; Start 06/16/18 at 22:00 Misoprostol (Cytotec) 1,000 mcg ONCE PRN AK .VAGINAL BLEEDING; Start 06/16/18 at 22:00 Meds reviewed: Yes Allergies Coded Allergies: No Known Allergy (Unverified , 09/09/16) Allergies Reviewed: Yes Labs/Studies Labs Reviewed: Reviewed by anesthesiologist Result Diagram: 06/16/182149 Laboratory Tests 06/16/18 21:50 test: Positive Pre-procedure Exam Last vitals Vital Signs Date Temp Pulse Resp B/P (MAP) Pulse Ox O2 O2 Flow FiO2 Time Delivery Rate 06/16/18 97.2 98 18 104/63 Room Air 18:32 (77) Airway: Adequate mouth opening, Adequate thyromental dist Mallampati: Mallampati III Teeth: Normal Lung: Normal Heart: Normal ASA Physical Status ASA physical status: 2 Emergency: None Planned Anesthetic Neuraxial: Epidural Planned Pain Management Epidural, Parenteral pain med, Other neuraxial med Pre-operative Attestations Prior to commencing anesthesia and surgery, the patient was re-evaluated, there was verification of: *The patient's identity *The results of appropriate recent lab work and preoperative vital signs *The above evaluation not changing prior to induction *Anesthetic plan, risk benefits, alternative and complications discussed with patient/family; questions answered; patient/family understands, accepts and wishes to proceed. WIN COURTNEY MD Jun 16, 2018 22:51
[2018-06-16] MEDS ORDERED: KETOROLAC 30 MG INJ IV PRN (23:00)
[2018-06-16] MEDS ORDERED: FENTAnyl 2MCG/ML-ROPIV 0.2% 100 ML BAG EPI SCH (23:00)
[2018-06-16] MEDS ORDERED: HYDROmorphONE 0.5 MG/0.5 ML SYG IV PRN ×2 (23:00)
[2018-06-16] MEDS ORDERED: DIPHENHYDRAMINE 50 MG INJ IV PRN (23:00)
[2018-06-16] MEDS ORDERED: ZOLPIDEM 5 MG TAB PO PRN (23:00)
[2018-06-16] MEDS ORDERED: NALOXONE (0.4 MG/ML) INJ IV PRN (23:00)
[2018-06-16] MEDS ORDERED: ONDANSETRON 4 MG INJ IV PRN (23:00)
[2018-06-17] VITALS (12 sets, daily range): BP systolic 92–116; BP diastolic 54–80; PULSE 64–86; RESP 16–20
--- NOTE | 2018-06-17 01:16 | TRIAGE ---
OB Triage Datetime Report Generated by CPN: 06/17/2018 01:16 Datetime: 06/17/2018 23:00 Stage of : Labor Datetime: 06/17/2018 00:00 Stage of : Labor Monitor Mode: External Duration (sec)2399: 60-100 Quality: Strong Pattern: Normal: <= 5 Contractions in 10 Minutes Resting Tone [place]: Relaxed Heart Rate FHR Baseline Rate: 135 Monitor Mode: External US Variability: Moderate 6-25 bpm Accelerations: 15X15 Decelerations: None Pain Assessment Pain Scale: 0 Pain Presence: None/Denies Pain Type: N/A Pain Goal: 3 Datetime: 06/16/2018 23:40 Vaginal Exam Dilatation (cms): 5.0 Effacement (%): 90 Station: -2 Membrane Status: Bulging Datetime: 06/16/2018 23:30 Stage of : Labor Labor Evaluation Frequency: 3-7 Monitor Mode: External Duration (sec)2399: 60-100 Quality: Strong Pattern: Normal: <= 5 Contractions in 10 Minutes Resting Tone [place]: Relaxed Heart Rate FHR Baseline Rate: 130 Monitor Mode: External US Variability: Moderate 6-25 bpm Accelerations: 15X15 Decelerations: None Comments: SOME LOSS OF CONTACT DUE TO PT SITTING UP FOR EPIDURAL Pain Assessment Pain Scale: 0 Pain Presence: None/Denies Pain Type: N/A Pain Goal: 3 Datetime: 06/16/2018 23:00 Stage of : Labor Labor Evaluation Frequency: 6-7 Monitor Mode: External Duration (sec)2399: 50-90 Quality: Strong Pattern: Normal: <= 5 Contractions in 10 Minutes Resting Tone [place]: Relaxed Heart Rate FHR Baseline Rate: 130 Monitor Mode: External US Variability: Moderate 6-25 bpm Accelerations: 15X15 Decelerations: None Category: Category I Pain Assessment Pain Scale: 10 Pain Presence: Intermittent Pain Type: Contraction Pain Location: Abdomen Pain Goal: 3 Pain Relief Measures: Epidural Given Datetime: 06/16/2018 22:53 Vaginal Exam Dilatation (cms): 4.5 Effacement (%): 70 Station: -2 Exam By: EM Vaginal Bleeding: Normal Show Cervix, Consistency: Soft Cervix, Position: Posterior Presentation 'A': Cephalic Datetime: 06/16/2018 21:59 Stage of : Labor Assessment Type: Admission Assessment Time of Arrival: 06/16/2018 18:05 EGA: 39.2 Arrived By: Ambulatory Arrived From: Home Chief Complaint: UCs [id number] since 1700 Movement: Present Contractions: Irregular Contractions: [id number] Rupture of Membranes: Denies Vaginal Bleeding: None Vaginal Discharge: Present Abdominal Trauma: Not Applicable Patient Complaints: Contractions; Cramping Time Provider Notified: 06/16/2018 19:44 Provider Notified: Initial Plan: Monitor Maternal Assessment Level of Consciousness: Fully Conscious DTR's/Clonus: DTRs 2+; No Clonus Headache: Denies Blurred Vision: No Respiratory Effort: Unlabored; Regular Rhythm; Equal Expansion Breath Sounds, Left: Clear and Equal Breath Sounds, Right: Clear and Equal Nausea/Vomiting: Denies RUQ Epigastric Pain: Denies Lower Extremities Edema: None Degree: None Upper Extremities Edema: None Degree: None Facial Edema: None Fall Risk Assessment History of Falling: (0) No Secondary Diagnosis: (0) No Ambulatory Aid: (0) Bedrest/Nurse Assist IV Therapy: (20) Yes Gait: (0) Normal/Bedrest/Immobile Mental Status: (0) Oriented to Own Ability Fall Score: 20 Fall Risk Score Definition: No Risk: No action required Labor Evaluation Frequency: 3-4 Duration (sec)2399: 50-70 Quality: Strong Pattern: Normal: <= 5 Contractions in 10 Minutes Resting Tone [place]: Relaxed Heart Rate FHR Baseline Rate: 130 Variability: Moderate 6-25 bpm Accelerations: None Decelerations: None Pain Assessment Pain Scale: 7 Pain Presence: Intermittent Pain Type: Contraction Pain Location: Abdomen Pain Goal: 3 Membrane Status: Intact Datetime: 06/16/2018 21:38 Stage of : OB Triage Labor Evaluation Frequency: Irregular Monitor Mode: External Duration (sec)2399: 40-170 Quality: Mild Pattern: Normal: <= 5 Contractions in 10 Minutes Resting Tone [place]: Relaxed Heart Rate FHR Baseline Rate: 130 Monitor Mode: External US FHR Baseline Changes: No Baseline Change Variability: Moderate 6-25 bpm Accelerations: 15X15 Decelerations: None Category: Category I Datetime: 06/16/2018 21:36 Vaginal Exam Dilatation (cms): 3.5 Effacement (%): 70 Station: -2 Exam By: SkipRN Cervix, Consistency: Soft Cervix, Position: Posterior Datetime: 06/16/2018 21:00 Stage of : OB Triage Labor Evaluation Frequency: Irregular Monitor Mode: External Duration (sec)2399: 40-120 Quality: Mild Pattern: Normal: <= 5 Contractions in 10 Minutes Resting Tone [place]: Relaxed Heart Rate FHR Baseline Rate: 130 Monitor Mode: External US Variability: Moderate 6-25 bpm Accelerations: 15X15 Decelerations: None Category: Category I Datetime: 06/16/2018 20:23 Stage of : OB Triage Datetime: 06/16/2018 20:00 Stage of : OB Triage Labor Evaluation Frequency: Irregular Monitor Mode: External Duration (sec)2399: 40-110 Quality: Mild Pattern: Normal: <= 5 Contractions in 10 Minutes Resting Tone [place]: Relaxed Heart Rate FHR Baseline Rate: 135 Monitor Mode: External US Variability: Moderate 6-25 bpm Accelerations: 15X15 Decelerations: Variable Category: Category II Datetime: 06/16/2018 19:44 Stage of : OB Triage Datetime: 06/16/2018 18:15 Stage of : OB Triage Maternal Assessment Level of Consciousness: Fully Conscious DTR's/Clonus: DTRs 2+; No Clonus Headache: Denies Blurred Vision: No Respiratory Effort: Unlabored; Regular Rhythm; Equal Expansion Breath Sounds, Left: Clear and Equal Breath Sounds, Right: Clear and Equal Nausea/Vomiting: Denies RUQ Epigastric Pain: Denies Lower Extremities Edema: None Degree: None Upper Extremities Edema: None Degree: None Facial Edema: None Temperature Route: Oral Fall Risk Assessment History of Falling: (0) No Secondary Diagnosis: (0) No Ambulatory Aid: (0) Bedrest/Nurse Assist IV Therapy: (0) No Gait: (0) Normal/Bedrest/Immobile Mental Status: (0) Oriented to Own Ability Fall Score: 0 Fall Risk Score Definition: No Risk: No action required Monitor Mode: External Heart Rate FHR Baseline Rate: 145 Monitor Mode: External US Pain Assessment Pain Scale: 5 Pain Presence: Intermittent Pain Type: Contraction Pain Location: Abdomen Pain Relief Measures: Comfort Measures Vaginal Exam Dilatation (cms): 1.0 Effacement (%): 50 Station: -2 Exam By: [facility] Membrane Status: Intact Datetime: 05/31/2018 13:24 Time of Arrival: 06/16/2018 18:05 EGA: 39.2 Arrived By: Ambulatory Arrived From: Home Chief Complaint: contraction Movement: Present Contractions: Irregular Time Contractions Began: 06/16/2018 17:00 Rupture of Membranes: Denies Vaginal Bleeding: None Vaginal Discharge: Denies Recent Sexual Intercouse: Denies Abdominal Trauma: Not Applicable Patient Complaints: Contractions Additional Patient Complaints: presented to triage c/o contractions started 1hr ago, denies leking of water denies bleeding, denies problem with Datetime: 05/31/2018 12:40 Fall Score: 0 Fall Risk Score Definition: No Risk: No action required Datetime: 05/31/2018 12:39 EGA: 37.1 Datetime: 04/25/2018 07:36 Fall Score: 20 Fall Risk Score Definition: No Risk: No action required Datetime: 04/24/2018 20:44 Fall Score: 20 Fall Risk Score Definition: No Risk: No action required Datetime: 04/24/2018 19:45 Fall Score: 20 Fall Risk Score Definition: No Risk: No action required Datetime: 04/24/2018 08:30 Fall Score: 0 Fall Risk Score Definition: No Risk: No action required Datetime: 04/22/2018 18:02 EGA: 31.4 Datetime: 04/22/2018 18:01 Fall Score: 0 Fall Risk Score Definition: No Risk: No action required Presentation 'A': Cephalic
[2018-06-17] MEDS: OXYTOCIN 30 UNITS/LR 500 ML IV SCH ×2 (03:53→10:11)
--- NOTE | 2018-06-17 04:00 | HP ---
Date/Time of Note Date/Time of Note DATE: 06/17/18 TIME: 03:55 OB - History Hx of Present Free Text/Dictation 32-year-old 4 para 3003 with single intrauterine at 39 weeks and 2 days with a VAIBHAV of 06/21/2018 with complaining of uterine contraction was admitted last night due to cervical changes from /-2 to /-2. She states good movement. She denies nausea, vomiting, shortness of breath, chest pain, headache, visual changes, vaginal bleeding or LOF. Chief Complaint: Uterine contractions Estimated Due Date: Jun 21, 2018 : 4 Para: 3 Spontaneous : 0 Therapeutic : 0 Care: Good Care Ultrasounds: Normal mid trimester US Obstetrical Complications: None Medical Complications: None Past Family/Social History * Past Medical, Surgical, Family and Obstetric Histories reviewed from [facility] art. Blood Type: O+ Rubella: immune RPR/VDRL: Negative GBS Status: Negative HBsAG: Negative OB Admission Exam Vital Signs Vital Signs Vital Signs Date Temp Pulse Resp B/P (MAP) Pulse Ox O2 O2 Flow FiO2 Time Delivery Rate 06/16/18 97.2 98 18 104/63 Room Air 18:32 (77) Physical Exam HEENT: WNL Heart: Rhythm Normal Lungs: Clear Abdomen: WNL Extremities: Normal Cervical Dilatation: 3cm Effacement: 75% Station: -2 Membranes: Intact Heart Rate: 140's Accelerations: Accelerations Present Decelerations: No Decelerations Varibility: Moderate Contractions on Admission: < 5 Minutes Apart Intensity: Moderate Last 72 hours Lab Results CBC & BMP 06/16/18 21:50 OB Assessment/Plan Other plan: 32 years old 4 para 3003 at 39 weeks and 2 days in active labor - FHR: No sign of metabolic acidosis- Category I - Continuous EFM, toco - CBC, blood type and screen - Analgesia options with R/B/A discussed in detail with patient - Epidural per patient request - Please see the order - O+/Rubella: Immune - GBS: negative Admission, procedures, expectations, risks and possible complications have been discussed in detail with the patient. Risk of vaginal delivery including but not limited to bleeding, infection, cervical laceration, placental retention, injury to fetus, blood transfusion, blood transfusion related infection, risk of anesthesia, adhesion, cervical laceration, episiotomy/laceration, possible delivery with risk of bleeding, infection, injury to other organs (bowel, bladder, ureter, vessels, nerves), injury to fetus, blood transfusion, blood transfusion related infection, risk of anesthesia, scar and hernia formation, needs for future , removal of uterus or any other indicated surgery discussed with the patient. She expressed understanding and repeats the risks. All of her questions were answered. She signed the informed consent. PHYSICIAN'S VERIFICATION OF INFORMED CONSENT The patient and her sister counseled regarding the procedure, its indications, risks, potential complications and alternatives and any questions were answered. Consent was obtained. PLANNED PROCEDURE/TREATMENT: Vaginal delivery, episiotomy, repair of laceration possible delivery WILL WALKER Jun 17, 2018 04:00
[2018-06-17] MEDS ORDERED: DEXTROSE 5%-LR 1,000 ML IV SCH (04:07)
[2018-06-17] MEDS ORDERED: LACTATED RINGER'S 1,000 ML IV* SCH (04:07)
--- NOTE | 2018-06-17 04:07 | LDN ---
Date/Time of Note Date/Time of Note DATE: 06/17/18 TIME: 04:00 Delivery Summary 32 years old 4 para 3003 at 39 weeks and 3 days delivered viable female over intact perineum. Nose and mouth suctioned. Rest of body delivered. The cord was around her right ankle which released. Cord clamped and cut after stopping pulsation. Placenta delivered intact and spontaneously with three-vessel cord. There was a 2 x 2 cm fluctuated mass at the right side of vaginal wall which drained with #14 needle after cleaning the vagina with Betadine. There was no further discharge. General hygiene discussed with patient. Time of delivery 03:24 Weight 7 pounds 10 ounces - 3465 g 8 at 1 minutes and 9 at 5 minutes EBL 200 ml Weeks of Gestation 39 weeks and 3 days Placenta Delivered: Spontaneously Meconium: none Episiotomy: No Estimated blood loss: 200 Sponge & Needle done & correct: Yes All needle counts correct: Yes Any foreign bodies felt in the: No Delivery Information Sex Sex: female Apgars 1 Minute: 8 5 Minute: 9 10 Minute: 10 Suctioning Nose & mouth suctioned at lara: Yes Umbilical Cord Umbilical cord with: 3 Vessels Cord Blood was obtained: Yes Mother & Baby Disposition Disposition Mom & Baby to Maternity; Good: Yes WILL WALKER Jun 17, 2018 04:07
[2018-06-17] MEDS ORDERED: SENNA/DOCUSATE NA (8.6MG/50MG) TAB PO PRN (04:30)
[2018-06-17] MEDS ORDERED: MISOPROSTOL 200 MCG TAB PR PRN (04:30)
[2018-06-17] MEDS ORDERED: BENZOCAINE 20% 56 ML SPRAY TOP PRN (04:30)
[2018-06-17] MEDS ORDERED: METHYLERGONOVINE 0.2 MG INJ IM PRN (04:30)
[2018-06-17] MEDS ORDERED: WITCH HAZEL/GLYCERIN PAD PR PRN (04:30)
[2018-06-17] MEDS ORDERED: DIBUCAINE 1% 30 GM OINT TOP PRN (04:30)
[2018-06-17] MEDS ORDERED: ONDANSETRON 4 MG INJ IV PRN (04:30)
[2018-06-17] MEDS ORDERED: DIPHENHYDRAMINE 50 MG INJ IV PRN (04:30)
[2018-06-17] MEDS ORDERED: CARBOPROST 250 MCG INJ IM PRN (04:30)
[2018-06-17] MEDS ORDERED: ZOLPIDEM 5 MG TAB PO PRN (04:30)
[2018-06-17] MEDS ORDERED: OXYTOCIN 30 UNITS/LR 500 ML IV PRN (04:30)
--- NOTE | 2018-06-17 04:32 | DELSUM ---
Delivery Summary A-C Datetime Report Generated by CPN: 06/17/2018 04:31 DELIVERY PERSONNEL Director Of Spa And Guest Experience: Causey, Teresita MATERNAL INFORMATION Delivery Anesthesia: Epidural Medications in Delivery: 30 UNIT PITOCIN Delivery QBL (ml): 200 Placenta Cultured: No Maternal Complications: None LABOR SUMMARY EDC: 06/21/2018 00:00 EDC: 06/20/2018 00:00 No. Babies in Womb: 1 Attempted: No Labor Anesthesia: Epidural LABOR INFORMATION Reason for Induction: Not Applicable Onset of Labor: 06/16/2018 17:00 Complete Dilatation: 06/17/2018 02:57 Oxytocin: N/A Group B Beta Strep: Negative Antibiotics # of Doses: 0 Steroids Given: None Reason Steroids Not Administered: Not Applicable MEMBRANES Membranes Rupture Method: Artificial Rupture of Membranes: 06/17/2018 02:57 Length of Rupture (hr): 0.45 Amniotic Fluid Color: Clear Amniotic Fluid Amount: Moderate Amniotic Fluid Odor: None STAGES OF LABOR Stage 1 hr: 9 Stage 1 min: 57 Stage 2 hr: 0 Stage 2 min: 27 Stage 3 hr: 0 Stage 3 min: 2 Total Time in Labor hr: 10 Total Time in Labor min: 26 VAGINAL DELIVERY Episiotomy: None Laceration Extension: N/A Laceration Type: None Initial Vag Sponge Count: 10 Final Vag Sponge Count: 10 Initial Vag Sharps Count: 1 Final Vag Sharps Count: 2 Sponge Count Correct: Yes; Vaginal Sweep Performed Sharps Count Correct: Yes BABY A INFORMATION Delivery Date/Time: 06/17/2018 03:24 Method of Delivery: Vaginal Method of Delivery: Vaginal Born in Route : No : N/A Forceps: N/A Vacuum Extraction: N/A Shoulder Dystocia : N/A SHOULDER DYSTOCIA BABY A Delivery Date/Time: 06/17/2018 03:24 PRESENTATION/POSITION BABY A Presentation: Cephalic Presentation: Cephalic Cephalic Presentation: Vertex Vertex Position: Left Occipital Anterior Breech Presentation: N/A PLACENTA INFORMATION BABY A Placenta Delivery Time : 06/17/2018 03:26 Placenta Method of Delivery: Spontaneous Placenta Status: Delivered SCORES BABY A Heart Rate 1 min: >100 bpm Resp Effort 1 min: Good Cry Reflex Irritability 1 min: Cough/Sneeze/Pulls Away Muscle Tone 1 min: Active Motion Color 1 min: Blue/Pale Resuscitation Effort 1 min: Tactile Stimulation SCORE 1 MIN: 8 Heart Rate 5 min: >100 bpm Resp Effort 5 min: Good Cry Reflex Irritability 5 min: Cough/Sneeze/Pulls Away Muscle Tone 5 min: Active Motion Color 5 min: Body [place], Extremit Blue Resuscitation Effort 5 min: Tactile Stimulation SCORE 5 MIN: 9 INFORMATION BABY A Gestational Age at Delivery: 39.3 Gestational Status: Full Term- 39- 40.6 Weeks Outcome : Liveborn Condition : Stable Sex: Female IDENTIFICATION/MEDS BABY A ID Band Number: [id number] ID Band Location: Right Leg; Left Arm Sensor Applied: Yes Sensor Number: [id number] Sensor Location : Cord Clamp Vitamin K Given : Not Given Erythromycin Given: Not Given WEIGHT/LENGTH BABY A Infant Birthweight (gm): 3465 Infant Weight (lb): 7 Infant Weight (oz): 10 Infant Length (in): 19.50 Length (cm): 49.53 CORD INFORMATION BABY A No. Cord Vessels: 3 Nuchal Cord : N/A Nuchal Cord- Other: cord around left leg Cord Blood Taken: Yes Suction: Mouth; Nose ASSESSMENT BABY A Infant Complications: None Physical Findings at Delivery: Within Normal Limits Respirations: Appears Normal Makeup Instructor/ALS Called : No Care By: Ac SANTANA Transferred To: Remains with Mother
[2018-06-17] MEDS: IBUPROFEN 600 MG TAB PO SCH ×4 (06:07→23:51)
[2018-06-17] MEDS: LANOLIN HPA 1 PKT TOP PRN (11:55)
[2018-06-17] MEDS: OXYCODONE/ASPIRIN (4.88/325) TAB PO PRN ×2 (13:50→19:39)
[2018-06-18] VITALS: BP_SYST 112; BP_SYST 89; BP_DIAS 66; BP_DIAS 80; PULSE 64; PULSE 68; RESP 16
[2018-06-18 04:30] VITALS: BP 86/52; PULSE 72; RESP 16
[2018-06-18] MEDS: IBUPROFEN 600 MG TAB PO SCH ×3 (06:06→17:40)
[2018-06-18 08:20] VITALS: BP 90/56; PULSE 64; RESP 18
[2018-06-18] MEDS: ACETAMINOPHEN 325 MG TAB PO PRN ×2 (09:18→18:34)
[2018-06-18 16:00] VITALS: BP 90/56; PULSE 66; RESP 16
[2018-06-18 16:30] VITALS: RESP 16
--- NOTE | 2018-06-18 17:53 | PAC ---
Date/Time of Note Date/Time of Note DATE: 06/18/18 TIME: 17:53 Post-Anesthesia Notes Post-Anesthesia Note Last documented vital signs Vital Signs Date Temp Pulse Resp B/P (MAP) Pulse Ox O2 O2 Flow FiO2 Time Delivery Rate 06/18/18 99.2 16 Room Air 16:30 06/18/18 66 90/56 (67) 16:00 Activity: WNL Respiratory function: WNL Cardiovascular function: WNL Mental status: Baseline Pain reasonably controlled: Yes Hydration appropriate: Yes Nausea/Vomiting absent: Yes WIN COURTNEY MD Jun 18, 2018 17:53
[2018-06-18 20:50] VITALS: BP 97/51; PULSE 63; RESP 20
--- NOTE | 2018-06-18 20:50 | DS ---
Date/Time of Note Date/Time of Note DATE: 06/18/18 TIME: 20:49 Obstetrical Discharge Record Final Diagnosis Final Diagnosis: Term delivered Vaginal Delivery Obstetrical Delivery: Spontaneous, Laceration, Repaired Condition on Discharge Physical Assessment Last Vitals: stable afebrile Voiding: Yes Bowel Movement: Yes Breast: Soft, non-tender, Filling Fundus: Firm Abdomen and Incision: soft nt Calf Tenderness: No Patient Condition: Fair GABBI SILVEIRA MD Jun 18, 2018 20:50
--- NOTE | 2018-06-18 20:50 | PD.PPDC ---
OUTPATIENT CODER Discharge Instruction Condition [id number] Patient Condition: Ayihs0o Fair Diet Urgby7Pp Diet: Pqafx2u Resume Regular Diet Activity/Restrictions [id number] Activity: [id number] Normal Activity May Shower [id number] Restrictions: [id number] No Exercising No Lifting No Driving No Sexual Activity Nothing in the Vagina No [place] No Tampons, douche Follow-up Follow-up with Physician: 3, Week/Weeks Return to clinic for [id number] MEDICAL PATHOLOGY TEACHER Instructions: [id number] Fever greater than 101 Chills Worsening abdominal pain Excessive Vaginal Bleeding More than 2 pads per hour Unable to tolerate diet [id number] OB Instructions: [id number] Breast Tenderness Depression Blurried Vision Headache [id number] Surgical Instructions: Solcc2l Incisional Drainage Incisional Redness GABBI SILVEIRA MD Jun 18, 2018 20:50
[2018-06-19] MEDS: IBUPROFEN 600 MG TAB PO SCH ×3 (00:30→11:48)
[2018-06-19 08:30] VITALS: BP 100/57; PULSE 72; RESP 18
[2018-06-19] MEDS ORDERED: MEASLES,MUMPS,RUBELLA VACCINE INJ SC* ONE (09:00)
[2018-06-19] MEDS ORDERED: DIPHTH/TET/ACEL PERTUSS (ADULT) 0.5 ML VIAL IM* ONE (09:00)
[2018-06-19] MEDS: LANOLIN HPA 1 PKT TOP PRN (12:08)
== END 2018-06-19 12:45 | disposition home or self-care (01) | DRG 807 ==
LOC: OBT 18:19 → L-D 18:20 → OBT 21:40 → L-D 06-17 04:02 → PP1 06-17 05:28
PROVIDERS: ADMIT Obstetrics & Gynecology; ATTEND Obstetrics & Gynecology
PROC: 10E0XZZ Delivery of Products of Conception, External Approach (ICD-10-PCS; principal; 2018-06-17)
PROC: 0U9G3ZZ Drainage of Vagina, Percutaneous Approach (ICD-10-PCS; 2018-06-17)
DX: O69.82X0 Labor and delivery complicated by other cord entanglement, without compression, not applicable or unspecified (principal); Z37.0 Single live birth; O75.89 Other specified complications of labor and delivery; N89.8 Other specified noninflammatory disorders of vagina; Z3A.39 39 weeks gestation of pregnancy; Z23 Encounter for immunization
CPT/HCPCS: 62319; 76818; 85025; 85610; 85730; 86592; 86850; 86900; 86901; 90686; 90715; G0463; J2590; J3010; J7120; J7121